=== PATIENT | female | born 2000 | race Caucasian/White ===

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

== ENCOUNTER 2018-10-01 07:24 | Emergency (ER) | payer MEDICAID ==
[~2018-10-01] VITALS: Ht 172.7 cm; Wt 87.1 kg
[2018-10-01 07:28] VITALS: BP 125/76
--- NOTE | 2018-10-01 07:36 | NUR ---
BIB SELF. AAO X4 C/O CONSTIPATION X1 WEEK, AND THEN ONE EPISODE OF DIARRHEA YESTERDAY ACCOMPANIED BY CHILLS, N/V AND EPIGASTRIC PAIN 11/27. PT STATES SHE DRANK MILK OF MAGNESIA Saturday09/25/18, BUT IT DID NOT PROVIDE RELIEF. PT DENIES LOSS OF APPETITE. ABDOMEN SOFT, NON TENDER TO TOUCH. HOB UP. BED SIDE RAILS UP X1. ON LOW BED POSITION, LOCKED. ER TO EVALUATE PT.
--- NOTE | 2018-10-01 07:36 | NUR ---
PATIENT AMBULATED TO BED 2
--- NOTE | 2018-10-01 07:48 | NUR ---
DR JIMENEZ AT BEDSIDE FOR PT EVALUATION
--- NOTE | 2018-10-01 08:23 | NUR ---
DR JIMENEZ AT BEDSIDE FOR PT RE EVALUATION
[2018-10-01 08:45] VITALS: BP 121/70
--- NOTE | 2018-10-01 08:45 | NUR ---
Patient discharged with v/s stable. Written and verbal after care instructions given and explained. Patient alert, oriented and verbalized understanding of instructions. Ambulatory with steady gait. All questions addressed prior to discharge. ID band removed. Patient advised to follow up with PMD. Rx of MIRALAX POWDER, MINERAL OIL given. Patient educated on indication of medication including possible reaction and side effects. Opportunity to ask questions provided and answered.
== END 2018-10-01 08:45 | disposition home or self-care (01) ==
LOC: MED 07:24
DX: K59.00 Constipation, unspecified (principal); R19.7 Diarrhea, unspecified
CPT/HCPCS: 74018; 81025; 99283; Q0092